=== PATIENT | female | born 1990 | race Caucasian/White ===

== ENCOUNTER 2021-08-07 09:29 | Inpatient (IN) ==
[2021-08-07 10:03] LABS: Bacteria,Urine Occasional /HPF (Few); Mucus,Urine Many /LPF (Occasional); RBC,Urine 15-20 /HPF (0-4); Squamous Epithelial Cell,Urine Occasional /HPF (0-10)
[2021-08-07 10:04] LABS: Bilirubin,Urine Small mg/dL (Negative); Blood, Urine Negative (Negative); Glucose,Urine (UA) 100 mg/dL (Negative); Ketones,Urine Negative (Negative); Nitrite,Urine Negative (Negative); Protein,Urine 30 mg/dL (Negative); Urine Appearance Clear (Clear); Urine Color Yellow (Yellow); Urine Specific Gravity > 1.030 (1.001-1.035); Urine Urobilinogen 0.2 eU/dL (<2.0)
[2021-08-07] MEDS ORDERED: ONDANSETRON 4 MG/2 ML VIAL IV ONE (11:07)
[2021-08-07] MEDS ORDERED: MEPERIDINE 50 MG/1 ML VIAL IV ONE (11:07)
[2021-08-07] MEDS ORDERED: LACTATED RINGERS 1,000 ML IV SCH (11:30)
[2021-08-07] MEDS ORDERED: PHENAZOPYRIDINE 95 MG TABLET PO SCH (12:00)
[2021-08-07] MEDS ORDERED: LEVOFLOXACIN INJ 750 MG/150 ML PREMIX IV SCH ×2 (12:00→16:30)
[2021-08-07] MEDS: ACETAMINOPHEN/CODEINE 300-30 MG TABLET PO PRN ×2 (13:03→16:15)
[2021-08-07] MEDS ORDERED: IBUPROFEN 800 MG TABLET PO PRN (16:28)
[2021-08-07] MEDS ORDERED: ACETAMINOPHEN 325 MG TABLET PO PRN (16:28)
[2021-08-07] MEDS ORDERED: MAGNESIUM HYDROXIDE SUSP 30 ML UDCUP PO PRN (16:28)
[2021-08-07] MEDS ORDERED: BISACODYL 10 MG SUPP RECTAL PRN (16:28)
[2021-08-07] MEDS: PHENAZOPYRIDINE 95 MG TABLET PO SCH (17:04)
[2021-08-07 17:29] LABS: Basophils # 0.1 10*3/uL (0.0-0.2); Basophils % 0.5 % (0.0-0.8); Eosinophils # 0.2 10*3/uL (0.0-0.87); Eosinophils % 2.2 % (0.00-10.9); Hematocrit 32.8 VOL% (35.7-47.0); Hemoglobin 10.3 GM/DL (12.0-16.0); Immature Granulocytes % 0.7 %; Immature Granulocytes Absolute 0.07 #; Lymphocytes # 2.5 10*3/uL (1.4-4.0); Mean Corpuscular HGB Conc 31.4 GM/DL (32-36); Mean Corpuscular Volume 82.4 FL (87-102); Mean Platelet Volume 11.6 FL (9.6-12.0); Monocytes # 0.7 10*3/uL (0.11-0.8); Monocytes % 6.1 % (1.7-12.7); Neutrophils % 67.5 % (38.7-73.9); Platelet Count 248 T/CUMM (130-400); Red Blood Count 3.98 MC/CUMM (3.8-5.5); Red Cell Distribution Width 13.7 % (9.3-17.3); White Blood Count 10.8 T/CUMM (4-12)
[2021-08-07] MEDS ORDERED: MEPERIDINE 50 MG/1 ML VIAL IV PRN (17:31)
[2021-08-07 17:47] LABS: Alanine Aminotransferase 25 U/L (13-56); Albumin 2.4 G/DL (3.4-5.0); Alkaline Phosphatase 90 U/L (45-117); Aspartate Amino Transferase 11 U/L (0-37); Bilirubin,Total < 0.39 MG/DL (0.20-1.00); Blood Urea Nitrogen 6 MG/DL (7-18); Calcium 8.5 MG/DL (8.5-10.1); Carbon Dioxide 24 MMOL/L (21-32); Chloride 108 MMOL/L (98-107); Glucose 95 MG/DL (74-106); Osmolality,Calculated 270.8 MOS/KG (273-304); Sodium 137 MMOL/L (136-145); Total Protein 6.4 G/DL (6.4-8.2)
[2021-08-07] MEDS: DOCUSATE SODIUM 100 MG CAPSULE PO SCH (20:36)
[2021-08-07] MEDS: ACETAMINOPHEN 500 MG TABLET PO PRN (20:37)
[2021-08-07] MEDS: LACTATED RINGERS 1,000 ML IV SCH (20:43)
[2021-08-08] MEDS: LACTATED RINGERS 1,000 ML IV SCH ×3 (04:39→22:25)
[2021-08-08] MEDS: PHENAZOPYRIDINE 95 MG TABLET PO SCH ×3 (08:22→18:00)
[2021-08-08] MEDS: DOCUSATE SODIUM 100 MG CAPSULE PO SCH ×2 (08:22→22:34)
[2021-08-08] MEDS: ONDANSETRON 4 MG/2 ML VIAL IV PRN (12:53)
[2021-08-08] MEDS: LEVOFLOXACIN INJ 750 MG/150 ML PREMIX IV SCH (12:53)
[2021-08-08] MEDS: ACETAMINOPHEN 500 MG TABLET PO PRN (15:36)
[2021-08-09] MEDS: LACTATED RINGERS 1,000 ML IV SCH ×2 (06:32→15:39)
[2021-08-09] MEDS: DOCUSATE SODIUM 100 MG CAPSULE PO SCH ×2 (08:41→21:04)
[2021-08-09] MEDS: PHENAZOPYRIDINE 95 MG TABLET PO SCH ×3 (08:41→19:47)
[2021-08-09] MEDS: LEVOFLOXACIN INJ 750 MG/150 ML PREMIX IV SCH (12:43)
[2021-08-09] MEDS: ONDANSETRON 4 MG/2 ML VIAL IV PRN (16:28)
[2021-08-10] MEDS: LACTATED RINGERS 1,000 ML IV SCH ×2 (00:05→08:21)
[2021-08-10] MEDS: PHENAZOPYRIDINE 95 MG TABLET PO SCH (08:19)
[2021-08-10] MEDS: ACETAMINOPHEN 500 MG TABLET PO PRN (08:20)
[2021-08-10] MEDS: DOCUSATE SODIUM 100 MG CAPSULE PO SCH (08:21)
[2021-08-10 12:22] VITALS: BP 109/67
== END 2021-08-10 10:35 | disposition home or self-care (01) | DRG 833 ==
LOC: N.LD 09:29 → N.LDOUT 09:29 → N.LD 09:32 → N.OB 16:27
PROVIDERS: ADMIT Obstetrics & Gynecology; ATTEND Obstetrics & Gynecology

== ENCOUNTER 2021-10-20 07:00 | Inpatient (IN) ==
[2021-10-20] MEDS ORDERED: METHYLERGONOVINE 0.2 MG/1 ML AMP IM PRN (07:15)
[2021-10-20] MEDS ORDERED: miSOPROStoL 200 MCG TABLET RECTAL PRN (07:15)
[2021-10-20] MEDS ORDERED: FAMOTIDINE 20 MG/2 ML VIAL IV ONE (07:15)
[2021-10-20] MEDS ORDERED: CITRIC ACID/SODIUM CITRATE 30 ML UDCUP PO ONE (07:15)
[2021-10-20] MEDS ORDERED: OXYTOCIN/LR 20 UNIT/1,000 ML BAG IV ONE ×2 (07:15→14:39)
[2021-10-20] MEDS ORDERED: TRANEXAMIC ACID 1,000 MG in SODIUM CHLORIDE 0.9% 100 ML IV PRN (07:15)
[2021-10-20] MEDS ORDERED: CARBOPROST TROMETHAMINE 250 MCG/ML AMP IM PRN (07:15)
[2021-10-20] MEDS ORDERED: OXYTOCIN/LR 30 UNIT/1,000 ML BAG IV ONE (07:17)
[2021-10-20] MEDS ORDERED: OXYTOCIN 10 UNIT/ML VIAL IM ONE (07:17)
[2021-10-20] MEDS ORDERED: ceFAZolin 3,000 MG in SYRINGE 1 EACH IV ONE (07:30)
[2021-10-20] MEDS ORDERED: LACTATED RINGERS 1,000 ML IV SCH ×3 (07:30→15:00)
[2021-10-20 07:41] LABS: Basophils # 0.1 10*3/uL (0.0-0.2); Basophils % 0.5 % (0.0-0.8); Eosinophils # 0.3 10*3/uL (0.0-0.87); Eosinophils % 2.4 % (0.00-10.9); Hematocrit 31.8 VOL% (35.7-47.0); Hemoglobin 9.8 GM/DL (12.0-16.0); Immature Granulocytes % 0.4 %; Immature Granulocytes Absolute 0.04 #; Lymphocytes # 1.9 10*3/uL (1.4-4.0); Lymphocytes % 18.6 % (21.3-54.2); Mean Corpuscular HGB Conc 30.8 GM/DL (32-36); Mean Corpuscular Volume 76.3 FL (87-102); Mean Platelet Volume 11.2 FL (9.6-12.0); Monocytes # 0.7 10*3/uL (0.11-0.8); Monocytes % 6.3 % (1.7-12.7); Neutrophils % 71.8 % (38.7-73.9); Platelet Count 288 T/CUMM (130-400); Red Blood Count 4.17 MC/CUMM (3.8-5.5); Red Cell Distribution Width 15.5 % (9.3-17.3); White Blood Count 10.3 T/CUMM (4-12)
[2021-10-20 08:02] LABS: Alanine Aminotransferase 21 U/L (13-56); Albumin 2.3 G/DL (3.4-5.0); Alkaline Phosphatase 138 U/L (45-117); Aspartate Amino Transferase 14 U/L (0-37); Bilirubin,Total < 0.39 MG/DL (0.20-1.00); Blood Urea Nitrogen 7 MG/DL (7-18); Calcium 8.5 MG/DL (8.5-10.1); Carbon Dioxide 20 MMOL/L (21-32); Chloride 111 MMOL/L (98-107); Glucose 86 MG/DL (74-106); Osmolality,Calculated 273.5 MOS/KG (273-304); Potassium 3.4 MMOL/L (3.5-5.1); Sodium 139 MMOL/L (136-145); Total Protein 6.4 G/DL (6.4-8.2)
[2021-10-20 10:16] LABS: Hepatitis B Surface Ag Quant < 0.10 Index; Hepatitis B Surface Ag Result Non-Reactive (NonReactive)
[2021-10-20] MEDS ORDERED: hydrOXYzine HCL 25 MG/1 ML VIAL IM PRN (10:41)
[2021-10-20] MEDS ORDERED: PROMETHAZINE 25 MG/1 ML VIAL IM ONE (10:41)
[2021-10-20] MEDS ORDERED: ePHEDrine 50 MG/ML VIAL IV PRN (10:41)
[2021-10-20] MEDS ORDERED: ONDANSETRON 4 MG/2 ML VIAL IV ONE (10:41)
[2021-10-20] MEDS ORDERED: diphenhydrAMINE 50 MG/1 ML VIAL IV PRN ×2 (10:41)
[2021-10-20] MEDS ORDERED: ONDANSETRON 4 MG/2 ML VIAL ONE (12:18)
[2021-10-20] MEDS ORDERED: BUPIVACAINE SPINAL 0.75% 2 ML AMP SPINAL ONE ×2 (12:18→12:23)
[2021-10-20] MEDS ORDERED: buprenorphine HCL 0.3 MG/ML VIAL ONE (12:18)
[2021-10-20] MEDS ORDERED: KETOROLAC 30 MG/1 ML VIAL ONE (14:07)
[2021-10-20] MEDS ORDERED: ACETAMINOPHEN INJ 1,000 MG/100 ML VIAL IV ONE (14:07)
[2021-10-20 14:19] LABS: Mucus,Urine Occasional /LPF (Occasional); RBC,Urine 1 /HPF (0-4); Squamous Epithelial Cell,Urine Occasional /HPF (0-10); Urine Appearance Clear (Clear); Urine Color Yellow (Yellow); Urine Specific Gravity 1.025 (1.001-1.035)
[2021-10-20 14:20] LABS: Bilirubin,Urine Negative (Negative); Blood, Urine Negative (Negative); Glucose,Urine (UA) Negative (Negative); Ketones,Urine 15 mg/dL (Negative); Nitrite,Urine Negative (Negative); Protein,Urine Negative (Negative); Urine Urobilinogen 0.2 eU/dL (<2.0)
[2021-10-20 14:22] LABS: Cord Arterial Blood HCO3 21.1 MMOL/L
[2021-10-20 14:25] LABS: Cord Venous Blood HCO3 21.1 MMOL/L; Cord Venous Blood PCO2 38.3 MMHG; Cord Venous Blood PO2 29.3
[2021-10-20] MEDS ORDERED: IBUPROFEN 800 MG TABLET PO PRN (14:39)
[2021-10-20] MEDS ORDERED: RHO(D) IMMUNE GLOBULIN 300 MCG SYRINGE IM ONE (14:39)
[2021-10-20] MEDS ORDERED: ACETAMINOPHEN 325 MG TABLET PO PRN (14:39)
[2021-10-20] MEDS ORDERED: ONDANSETRON 4 MG/2 ML VIAL IV PRN (14:39)
[2021-10-20] MEDS: DOCUSATE SODIUM 100 MG CAPSULE PO SCH (20:02)
[2021-10-20] MEDS: KETOROLAC 30 MG/1 ML VIAL IV SCH (20:02)
[2021-10-20] MEDS: POTASSIUM CHLORIDE 20 MEQ TABLET PO PRN ×2 (20:02→22:02)
[2021-10-20] MEDS: ACETAMINOPHEN/CODEINE 300-30 MG TABLET PO PRN (20:46)
[2021-10-20] MEDS: ACETAMINOPHEN 500 MG TABLET PO SCH (20:47)
[2021-10-20] MEDS: ceFAZolin 2,000 MG/50 ML DUPLEX IV SCH (21:19)
[2021-10-20 22:18] LABS: Basophils # 0.1 10*3/uL (0.0-0.2); Basophils % 0.4 % (0.0-0.8); Eosinophils # 0.2 10*3/uL (0.0-0.87); Eosinophils % 1.7 % (0.00-10.9); Hematocrit 27.3 VOL% (35.7-47.0); Hemoglobin 8.3 GM/DL (12.0-16.0); Immature Granulocytes % 0.4 %; Immature Granulocytes Absolute 0.06 #; Lymphocytes # 2.4 10*3/uL (1.4-4.0); Lymphocytes % 17.9 % (21.3-54.2); Mean Corpuscular HGB Conc 30.4 GM/DL (32-36); Mean Corpuscular Volume 77.6 FL (87-102); Mean Platelet Volume 11.1 FL (9.6-12.0); Monocytes # 0.7 10*3/uL (0.11-0.8); Monocytes % 4.8 % (1.7-12.7); Neutrophils % 74.8 % (38.7-73.9); Platelet Count 237 T/CUMM (130-400); Red Blood Count 3.52 MC/CUMM (3.8-5.5); Red Cell Distribution Width 15.5 % (9.3-17.3); White Blood Count 13.5 T/CUMM (4-12)
[2021-10-21] MEDS: ACETAMINOPHEN 500 MG TABLET PO SCH (00:06)
[2021-10-21] MEDS: POTASSIUM CHLORIDE 20 MEQ TABLET PO PRN ×2 (00:08→07:11)
[2021-10-21] MEDS: KETOROLAC 30 MG/1 ML VIAL IV SCH ×3 (01:57→14:50)
[2021-10-21] MEDS: ACETAMINOPHEN/CODEINE 300-30 MG TABLET PO PRN ×5 (01:57→23:00)
[2021-10-21] MEDS: ceFAZolin 2,000 MG/50 ML DUPLEX IV SCH (05:23)
[2021-10-21 06:42] LABS: Basophils # 0.1 10*3/uL (0.0-0.2); Basophils % 0.7 % (0.0-0.8); Eosinophils # 0.3 10*3/uL (0.0-0.87); Eosinophils % 3.3 % (0.00-10.9); Hematocrit 25.6 VOL% (35.7-47.0); Hemoglobin 7.6 GM/DL (12.0-16.0); Immature Granulocytes % 0.6 %; Immature Granulocytes Absolute 0.06 #; Lymphocytes # 2.2 10*3/uL (1.4-4.0); Lymphocytes % 23.9 % (21.3-54.2); Mean Corpuscular HGB Conc 29.7 GM/DL (32-36); Mean Corpuscular Volume 78.3 FL (87-102); Mean Platelet Volume 11.2 FL (9.6-12.0); Monocytes # 0.6 10*3/uL (0.11-0.8); Monocytes % 6.2 % (1.7-12.7); Neutrophils % 65.3 % (38.7-73.9); Platelet Count 224 T/CUMM (130-400); Red Blood Count 3.27 MC/CUMM (3.8-5.5); Red Cell Distribution Width 15.4 % (9.3-17.3); White Blood Count 9.4 T/CUMM (4-12)
[2021-10-21] MEDS: FERROUS SULFATE 325 MG TABLET PO SCH ×2 (08:56→21:05)
[2021-10-21] MEDS: SIMETHICONE CHEW 80 MG TABLET PO PRN (08:56)
[2021-10-21] MEDS: MULTIVITAMIN (PRENATAL) TABLET PO SCH (08:56)
[2021-10-21] MEDS: MAGNESIUM HYDROXIDE SUSP 30 ML UDCUP PO PRN ×2 (08:56→21:08)
[2021-10-21] MEDS: DOCUSATE SODIUM 100 MG CAPSULE PO SCH ×2 (08:56→21:04)
[2021-10-21] MEDS: METOCLOPRAMIDE 10 MG TABLET PO SCH ×2 (08:56→18:41)
[2021-10-21] MEDS ORDERED: SODIUM CHLORIDE 0.9% 1,000 ML IV PRN (09:23)
[2021-10-21 16:28] LABS: Hematocrit 30.9 VOL% (35.7-47.0); Hemoglobin 9.6 GM/DL (12.0-16.0)
[2021-10-22] MEDS: METOCLOPRAMIDE 10 MG TABLET PO SCH ×2 (02:14→09:21)
[2021-10-22] MEDS: ACETAMINOPHEN/CODEINE 300-30 MG TABLET PO PRN (05:47)
[2021-10-22] MEDS: SIMETHICONE CHEW 80 MG TABLET PO PRN ×2 (05:48→09:21)
[2021-10-22 06:34] LABS: Hematocrit 32.9 VOL% (35.7-47.0); Hemoglobin 10.1 GM/DL (12.0-16.0)
[2021-10-22] MEDS: MULTIVITAMIN (PRENATAL) TABLET PO SCH (09:20)
[2021-10-22] MEDS: MAGNESIUM HYDROXIDE SUSP 30 ML UDCUP PO PRN (09:20)
[2021-10-22] MEDS: FERROUS SULFATE 325 MG TABLET PO SCH (09:20)
[2021-10-22] MEDS: DOCUSATE SODIUM 100 MG CAPSULE PO SCH (09:21)
[2021-10-22 09:49] VITALS: BP 118/66
[2021-10-22] MEDS ORDERED: DIPH/TET/ACEL PERT BOOSTER VACCINE 0.5 ML VIAL IM ONE (11:03)
== END 2021-10-22 12:15 | disposition home or self-care (01) | DRG 785 ==
LOC: N.LD 07:00 → N.OB 17:15
PROVIDERS: ADMIT Obstetrics & Gynecology; ATTEND Obstetrics & Gynecology